=== PATIENT | female | born 1940 | race Caucasian/White ===

== ENCOUNTER 2017-02-18 08:25 | Day surgery (SDC) | payer OTHER ==
[~2017-02-18] VITALS: Ht 154.9 cm; Wt 100.2 kg
[~2017-02-18 08:25] MED LIST: ASPI81TA85 PO; BSS with VANC/TOB/EPI for EYE CASES IR ONE; CARV3.12 PO; COLE1TAB PO; CYCLOPENTOLATE 2% OPHTH SOLN 2ML BTL OS ONE; DULO1CAP3 PO; EZET10TA PO; FLUTISP; HYDR25TAB PO; INSULANT SC; JANU100T PO; LIDOCAINE 3.5 % 1ML OPHTH TOPICAL GEL OU ONE; LORA10TA2 PO; METF10004 PO; MIDAZOLAM INJ 2 MG/2 ML VIAL (J2250) As Ordered ONE; NEXI1CAP4 PO; NIAC500T5 PO; OFLOXACIN 0.3 % (OCUFLOX) OPTH SOL 5ML OS ONE; PHENYLEPHRINE 2.5% OPHTH SOL 2ML OS ONE; PLAV1TAB2 PO; SYNT125T PO; TROPICAMIDE 1% OPHTH SOLN 2ML OS ONE; TYLE500T78 PO; VITA500T PO; fentaNYL 100 MCG/2 ML INJECTION (J3010) As Ordered ONE
[2017-02-18] MEDS ORDERED: LR 1,000 ML IV ONE (08:45)
[2017-02-18] MEDS ORDERED: TRIAMCINOLONE PRES FR 40 MG/ML 1ML(TRIESENCE)(OR EYE ONLY)(J3300 PER 1MG) As Ordered ONE ×2 (09:34→09:43)
[2017-02-18] MEDS ORDERED: LIDOCAINE 1% SDV 5 ML VIAL As Ordered ONE ×2 (09:34→09:43)
[2017-02-18] MEDS ORDERED: POVIDONE-IODINE 5% OPHTH PREP SOL 30ML As Ordered ONE ×2 (09:34→09:43)
[2017-02-18] MEDS ORDERED: MOXIFLOXACIN IN BSS 0.25MG/0.25ML INTRACAMERAL INJ (OR EYE ONLY)(J2280) As Ordered ONE ×2 (09:34→09:43)
[2017-02-18] MEDS ORDERED: HEALON DUET (HEALON 10MG/ML 0.55ML & HEALON ENDOCOAT 30MG/ML 0.85ML) As Ordered ONE ×2 (09:35→09:43)
[2017-02-18 10:40] VITALS: BP 169/68
== END 2017-02-18 10:53 | disposition home or self-care (01) ==
LOC: M SDC 08:25
PROVIDERS: ATTEND Ophthalmology
DX: H26.9 Unspecified cataract (principal); I25.2 Old myocardial infarction; I12.9 Hypertensive chronic kidney disease with stage 1 through stage 4 chronic kidney disease, or unspecified chronic kidney disease; E78.2 Mixed hyperlipidemia; E10.9 Type 1 diabetes mellitus without complications; E03.8 Other specified hypothyroidism; K21.9 Gastro-esophageal reflux disease without esophagitis; M12.9 Arthropathy, unspecified; F41.9 Anxiety disorder, unspecified; F32.9 Major depressive disorder, single episode, unspecified; N18.3 Chronic kidney disease, stage 3 (moderate); D64.9 Anemia, unspecified; M25.562 Pain in left knee; E66.9 Obesity, unspecified; E55.9 Vitamin D deficiency, unspecified; E53.8 Deficiency of other specified B group vitamins; Z88.2 Allergy status to sulfonamides; Z79.899 Other long term (current) drug therapy; Z79.82 Long term (current) use of aspirin; Z79.84 Long term (current) use of oral hypoglycemic drugs
CPT/HCPCS: 66984; J2250; J2280; J3010; J3300; V2632

== ENCOUNTER 2017-04-06 06:31 | Day surgery (SDC) | payer OTHER ==
[~2017-04-06] VITALS: Ht 154.9 cm; Wt 99.8 kg
[~2017-04-06 06:31] MED LIST changes: -BSS with VANC/TOB/EPI for EYE CASES IR ONE; -CYCLOPENTOLATE 2% OPHTH SOLN 2ML BTL OS ONE; -LIDOCAINE 3.5 % 1ML OPHTH TOPICAL GEL OU ONE; -MIDAZOLAM INJ 2 MG/2 ML VIAL (J2250) As Ordered ONE; -OFLOXACIN 0.3 % (OCUFLOX) OPTH SOL 5ML OS ONE; -PHENYLEPHRINE 2.5% OPHTH SOL 2ML OS ONE; -TROPICAMIDE 1% OPHTH SOLN 2ML OS ONE; +VITA100072 PO; -fentaNYL 100 MCG/2 ML INJECTION (J3010) As Ordered ONE
[2017-04-06] MEDS ORDERED: SLF 3 ML SYR IV PRN (06:45)
[2017-04-06] MEDS ORDERED: CYCLOPENTOLATE 2% OPHTH SOLN 2ML BTL OD ONE (07:00)
[2017-04-06] MEDS ORDERED: BSS with VANC/TOB/EPI for EYE CASES IR ONE (07:00)
[2017-04-06] MEDS ORDERED: TROPICAMIDE 1% OPHTH SOLN 2ML OD ONE (07:00)
[2017-04-06] MEDS ORDERED: LIDOCAINE 3.5 % 1ML OPHTH TOPICAL GEL OU ONE (07:00)
[2017-04-06] MEDS ORDERED: OFLOXACIN 0.3 % (OCUFLOX) OPTH SOL 5ML OD ONE (07:00)
[2017-04-06] MEDS ORDERED: PHENYLEPHRINE 2.5% OPHTH SOL 2ML OD ONE (07:00)
[2017-04-06] MEDS ORDERED: LIDOCAINE 1% SDV 5 ML VIAL As Ordered ONE (08:30)
[2017-04-06] MEDS ORDERED: POVIDONE-IODINE 5% OPHTH PREP SOL 30ML As Ordered ONE (08:30)
[2017-04-06] MEDS ORDERED: TRIAMCINOLONE PRES FR 40 MG/ML 1ML(TRIESENCE)(OR EYE ONLY)(J3300 PER 1MG) As Ordered ONE (08:30)
[2017-04-06] MEDS ORDERED: MOXIFLOXACIN IN BSS 0.25MG/0.25ML INTRACAMERAL INJ (OR EYE ONLY)(J2280) As Ordered ONE (08:31)
[2017-04-06] MEDS ORDERED: HEALON DUET (HEALON 10MG/ML 0.55ML & HEALON ENDOCOAT 30MG/ML 0.85ML) As Ordered ONE ×2 (08:31→08:53)
[2017-04-06] MEDS ORDERED: MIDAZOLAM INJ 2 MG/2 ML VIAL (J2250) As Ordered ONE (08:49)
[2017-04-06] MEDS ORDERED: fentaNYL 100 MCG/2 ML INJECTION (J3010) As Ordered ONE ×2 (08:49→09:10)
[2017-04-06] MEDS ORDERED: ACETYLCHOLINE OPHTH SOLN 1% 2ML (MIOCHOL-E) As Ordered ONE (08:59)
[2017-04-06 09:55] VITALS: BP 168/76
--- NOTE | 2017-04-06 10:48 | RO ---
DATE OF PROCEDURE: 04/06/2017 PREPROCEDURE DIAGNOSIS: Cataract right eye. POSTPROCEDURE DIAGNOSIS: Cataract right eye. PROCEDURE: Phacoemulsification and intraocular lens implantation, power [id number], power 25 diopters. SURGEON: Dr. Katie Leblanc. [employer] CUTTING SUPERVISOR: None. ANESTHESIA: DESCRIPTION OF PROCEDURE: The patient was brought to the operating room and laid in supine position. The eye was prepped and draped in sterile type fashion for ophthalmic surgery and a lid speculum was placed. A sideport incision was made and then EndoCoat with injected into the anterior chamber. Temporal clean corneal incision was made with a 2.5 mm keratome and capsulorrhexis was done. This was followed by hydrodissection and phacoemulsification in a divide and conquer method. Excess cortical material cortical material was then aspirated using a aspiration cannula. Healon was then placed into the capsular bag and then intraocular lens inserted. Excess viscoelastic was being aspirated when the lens slipped and a tear was noted into the posterior capsule. At this point, we decided to do a lens exchange with the help of the lens curet. The originally placed lens, which was a HOYA was then cut and removed and the [id number] diopter was then placed in the ciliary sulcus. Excess viscoelastic was aspirated. The wound was hydrated. Subtenon injection of the cameral was given. Intracameral moxifloxacin was given. The lid speculum was removed and the case was discussed in detail with the patient in the recovery room.
[2017-04-06] MEDS ORDERED: SLF 3 ML SYR IV SCH (14:00)
== END 2017-04-06 09:56 | disposition home or self-care (01) ==
LOC: M SDC 06:31
PROVIDERS: ATTEND Ophthalmology
DX: H26.9 Unspecified cataract (principal); H59.211 Accidental puncture and laceration of right eye and adnexa during an ophthalmic procedure; I12.9 Hypertensive chronic kidney disease with stage 1 through stage 4 chronic kidney disease, or unspecified chronic kidney disease; I25.2 Old myocardial infarction; E10.9 Type 1 diabetes mellitus without complications; E78.00 Pure hypercholesterolemia, unspecified; K21.9 Gastro-esophageal reflux disease without esophagitis; D64.9 Anemia, unspecified; M19.90 Unspecified osteoarthritis, unspecified site; F41.9 Anxiety disorder, unspecified; F32.9 Major depressive disorder, single episode, unspecified; N18.3 Chronic kidney disease, stage 3 (moderate); Z88.2 Allergy status to sulfonamides; Z79.899 Other long term (current) drug therapy; Z79.82 Long term (current) use of aspirin; Z79.02 Long term (current) use of antithrombotics/antiplatelets
CPT/HCPCS: 66984; J2250; J2280; J3010; J3300; V2632

== ENCOUNTER → 2019-07-11 | Outpatient (CLI) | payer MEDICAID, MEDICARE ==
[~2019-07-11] MED LIST changes: -DULO1CAP3 PO; +DULO1CAP6 PO; -EZET10TA PO; +EZET10TA21 PO; +LORA-243 PO; -LORA10TA2 PO; +VITA100018 PO; -VITA100072 PO
--- NOTE | 2019-07-11 12:10 | REP ---
PA and lateral chest: There are no comparisons. The there are no focal infiltrates. The lung soto otherwise clear. Cardiac size is normal. The angela and mediastinum are unremarkable. There is thoracic scoliosis convex right at the thoracolumbar junction. Impression No acute cardiopulmonary findings. Electronically Signed by Juanjo Pedersen MD 07/11/2019 12:01 P
--- NOTE | 2019-07-11 13:30 | REP ---
Ventilation-perfusion lung scan: History: Shortness of breath. Elevated D-dimer. Technique: 1.0 mCi technetium 99m DTPA aerosol is utilized for the ventilation study and is followed by a 5.4 mCi intravenous dose of technetium-99m MAA for the perfusion study. A series of eight planar images are acquired for each portion of the exam. Comparison is made with today's chest x-ray. Scintigraphic findings: The ventilation study shows some central bronchial deposition of tracer bilaterally consistent with some degree of COPD. Perfusion study shows better distribution and more homogeneous distribution than the ventilation study. There is a matched defect in the right lower lobe laterally. No mismatched defect is seen. Impression: Low probability VQ scan for pulmonary embolus. Electronically Signed by Greg Morin MD 07/11/2019 05:42 P
== END ==
LOC: M RAD 11:14
PROVIDERS: ATTEND Family Medicine
DX: R06.02 Shortness of breath (principal)
CPT/HCPCS: 71046; 78582; A9540; A9567

== ENCOUNTER 2021-11-02 14:45 | Inpatient (IN) | payer MEDICARE ==
[~2021-11-02] VITALS: Ht 154.9 cm; Wt 70.6 kg
[~2021-11-02 14:45] MED LIST changes: -ASPI81TA85 PO; +ASPI81TA86 PO; +HYDR-3490 PO; -HYDR25TAB PO; +VITA-243 PO; -VITA500T PO
[2021-11-02 15:45] VITALS: BP 157/60
[2021-11-02] MEDS ORDERED: ENOXAPARIN 30MG/0.3ML SYRINGE (J1650 PER 10MG) SC SCH (17:30)
[2021-11-02] MEDS: INSULIN LISPRO (NovoLOG) PER UNIT SC SCH (17:30)
[2021-11-02] MEDS ORDERED: DEXTROSE 50% 50 ML SYRINGE IV PRN (17:45)
[2021-11-02] MEDS ORDERED: GLUCOSE 4GM CHEW TABLET PO PRN (17:45)
[2021-11-02] MEDS ORDERED: GLUCAGON INJ 1MG VIAL SC PRN (17:45)
[2021-11-02] MEDS ORDERED: CIPROFLOXACIN 250MG TAB PO SCH (18:00)
[2021-11-02] MEDS ORDERED: ASPI-161 PO (18:54)
[2021-11-02] MEDS ORDERED: PROT40IN4 IV (18:54)
[2021-11-02] MEDS ORDERED: [UNRECOGNIZED DRUG - CODE] IV (18:54)
[2021-11-02] MEDS ORDERED: ACET1TAB55 PO (18:54)
[2021-11-02] MEDS ORDERED: NOVOINJ12 SC (18:54)
[2021-11-02] MEDS ORDERED: IPRA0.00 NEB (18:54)
[2021-11-02] MEDS ORDERED: ONDA40IN IV (18:54)
[2021-11-02] MEDS ORDERED: COMMENTS (18:56)
[2021-11-02] MEDS ORDERED: HOME MED LIST COMPLETE! XX SCH (19:00)
[2021-11-02 19:08] LABS: ALBUMIN 3.2 GM/DL (3.2-5.2); BILIRUBIN,TOTAL 0.5 MG/DL (0.2-1.0); CALCIUM LEVEL 7.7 MG/DL (8.8-10.2); CREATININE FOR GFR 9.08 MG/DL (0.55-1.30); GLOMERULAR FILTRATION RATE 4.4 (>32); POTASSIUM SERUM 4.7 MEQ/L (3.5-5.1); TOTAL PROTEIN 5.4 GM/DL (6.4-8.2)
[2021-11-02 20:00] VITALS: BP 147/66
[2021-11-02 20:15] LABS: APPEARANCE, URINE CLEAR (CLEAR); BACTERIA, URINE AUTO NEGATIVE (NEGATIVE); BILIRUBIN, URINE AUTO NEGATIVE (NEGATIVE); BLOOD, URINE BLOOD 2+ (NEGATIVE); COLOR, URINE COLORLESS (YELLOW); GLUCOSE, URINE (UA) AUTO 3+ mg/dL (NEGATIVE); KETONE, URINE AUTO TRACE mg/dL (NEGATIVE); LEUKOCYTE ESTERASE, URINE AUTO NEGATIVE (NEGATIVE); NITRITE, URINE AUTO NEGATIVE (NEGATIVE); PROTEIN, URINE AUTO 1+ mg/dL (NEGATIVE); RBC, URINE AUTO 13 /HPF (0-3); SPECIFIC GRAVITY URINE AUTO 1.003 (1.002-1.035); SQUAMOUS EPITHELIAL CELL UR AU 0 /HPF (0-6); UROBILINOGEN, URINE AUTO 0.2 mg/dL (0.0-2.0); WBC, URINE AUTO 0 /HPF (0-3)
[2021-11-02 20:18] LABS: OSMOLALITY URINE 287 MOSM/KG (50-1400)
[2021-11-02] MEDS ORDERED: LEVEMIR (INSULIN DETEMIR) 1 UNITS/0.01ML SC SCH (21:00)
[2021-11-02] MEDS: ASCORBIC ACID 500 MG TAB PO SCH (21:29)
[2021-11-02] MEDS: NS 1,000 ML IV SCH (23:49)
[2021-11-03] VITALS: BP 147/66
[2021-11-03] MEDS ORDERED: UNRESOLVED CLARIFICATION ENTRY XX SCH (00:01)
[2021-11-03] MEDS ORDERED: PILL CUTTER 1 EACH XX PRN (00:55)
[2021-11-03] MEDS ORDERED: FAMOTIDINE 20 MG TAB PO ONE (01:00)
[2021-11-03 04:00] VITALS: BP 152/68
[2021-11-03 05:43] LABS: BASO % 0.4 % (0.0-1.0); EOS # 0.3 10^3/uL (0.0-0.5); HEMATOCRIT 29.7 % (36.0-47.0); HEMOGLOBIN 9.6 g/dl (12.0-15.5); LYMPH # 3.1 10^3/uL (1.5-5.0); LYMPH % 44.9 % (24.0-44.0); MEAN CORPUSCULAR HEMOGLOBIN 32.3 pg (27.0-33.0); MEAN CORPUSCULAR HGB CONC 32.3 g/dl (32.0-36.5); MONO # 0.4 10^3/uL (0.0-0.8); MONO % 5.2 % (2.0-8.0); NEUTROPHILS # 3.1 10^3/uL (1.5-8.5); NEUTROPHILS % 45.1 % (36.0-66.0); PLATELET COUNT, AUTOMATED 123 10^3/uL (150-450); RED BLOOD COUNT 2.97 10^6/uL (4.00-5.40); WHITE BLOOD COUNT 6.8 10^3/uL (4.0-10.0)
[2021-11-03 06:13] LABS: CALCIUM LEVEL 7.6 MG/DL (8.8-10.2); CREATININE FOR GFR 9.29 MG/DL (0.55-1.30); GLOMERULAR FILTRATION RATE 4.3 (>32); MAGNESIUM LEVEL 1.5 MG/DL (1.8-2.4); POTASSIUM SERUM 4.3 MEQ/L (3.5-5.1); URIC ACID 14.2 MG/DL (2.6-6.0)
[2021-11-03] MEDS: LEVOTHYROXINE 125MCG TABLET (0.125MG) PO SCH (06:40)
[2021-11-03] MEDS: MAG SULF 1GM/100ML (MAG RUN) 1 GM in IV 1 EA IV SCH ×2 (06:40→08:03)
[2021-11-03] MEDS: INSULIN LISPRO (NovoLOG) PER UNIT SC SCH ×3 (07:17→16:54)
[2021-11-03] MEDS: CYANOCOBALAMIN 500 MCG TAB PO SCH (08:33)
[2021-11-03] MEDS: CLOPIDOGREL 75 MG TAB PO SCH (08:33)
[2021-11-03] MEDS: ASPIRIN 81MG ENTERIC TABLET PO SCH (08:33)
[2021-11-03] MEDS: DULoxetine 30MG CAPSULE (CYMBALTA) PO SCH (08:33)
[2021-11-03] MEDS: HEPARIN SOD (PORCINE) 5000UNITS/ML 1ML VIAL/SYRINGE SQ SCH ×2 (08:33→21:11)
[2021-11-03] MEDS: LORATADINE 10 MG TAB PO SCH (08:34)
[2021-11-03] MEDS: ASCORBIC ACID 500 MG TAB PO SCH ×3 (08:34→21:11)
[2021-11-03] MEDS: ACETAMINOPHEN TAB 650MG DOSE (2X325MG) PO PRN (11:08)
[2021-11-03] MEDS: NS 1,000 ML IV SCH ×2 (11:23→18:52)
[2021-11-03] MEDS ORDERED: allopurinoL 100 MG TAB PO ONE (12:15)
[2021-11-03] MEDS: ONDANSETRON 4MG 2ML VIAL IV PRN (15:17)
[2021-11-03 15:26] VITALS: BP 190/96
[2021-11-03] MEDS: amLODIPine 5 MG TAB PO SCH (16:53)
[2021-11-03 20:00] VITALS: BP 188/89
[2021-11-04 00:32] VITALS: BP 161/74
[2021-11-04] MEDS: NS 1,000 ML IV SCH ×4 (01:35→22:05)
[2021-11-04 03:27] VITALS: BP 164/88
[2021-11-04 06:13] LABS: BASO % 0.4 % (0.0-1.0); EOS # 0.2 10^3/uL (0.0-0.5); EOS % 3.2 % (0.0-3.0); HEMATOCRIT 31.5 % (36.0-47.0); HEMOGLOBIN 10.6 g/dl (12.0-15.5); LYMPH # 2.8 10^3/uL (1.5-5.0); LYMPH % 39.7 % (24.0-44.0); MEAN CORPUSCULAR HEMOGLOBIN 33.8 pg (27.0-33.0); MEAN CORPUSCULAR HGB CONC 33.7 g/dl (32.0-36.5); MEAN CORPUSCULAR VOLUME 100.3 fl (80.0-96.0); MONO # 0.3 10^3/uL (0.0-0.8); MONO % 4.5 % (2.0-8.0); NEUTROPHILS # 3.7 10^3/uL (1.5-8.5); NEUTROPHILS % 51.9 % (36.0-66.0); PLATELET COUNT, AUTOMATED 129 10^3/uL (150-450); RED BLOOD COUNT 3.14 10^6/uL (4.00-5.40); WHITE BLOOD COUNT 7.2 10^3/uL (4.0-10.0)
[2021-11-04 06:26] LABS: MAGNESIUM LEVEL 2.1 MG/DL (1.8-2.4)
[2021-11-04] MEDS: ONDANSETRON 4MG 2ML VIAL IV PRN (06:31)
[2021-11-04] MEDS: ACETAMINOPHEN TAB 650MG DOSE (2X325MG) PO PRN (06:32)
[2021-11-04] MEDS: LEVOTHYROXINE 125MCG TABLET (0.125MG) PO SCH (06:32)
[2021-11-04 07:22] VITALS: BP 158/77
[2021-11-04] MEDS: INSULIN LISPRO (NovoLOG) PER UNIT SC SCH ×3 (07:30→17:30)
[2021-11-04 07:31] LABS: CALCIUM LEVEL 7.4 MG/DL (8.8-10.2); CREATININE FOR GFR 8.35 MG/DL (0.55-1.30); GLOMERULAR FILTRATION RATE 4.9 (>32); POTASSIUM SERUM 4.3 MEQ/L (3.5-5.1)
[2021-11-04] MEDS: CYANOCOBALAMIN 500 MCG TAB PO SCH (08:26)
[2021-11-04] MEDS: allopurinoL 100 MG TAB PO SCH (08:26)
[2021-11-04] MEDS: METOCLOPRAMIDE 5 MG TAB PO SCH ×4 (08:26→20:46)
[2021-11-04] MEDS: DULoxetine 30MG CAPSULE (CYMBALTA) PO SCH (08:26)
[2021-11-04] MEDS: amLODIPine 5 MG TAB PO SCH (08:26)
[2021-11-04] MEDS: ASPIRIN 81MG ENTERIC TABLET PO SCH (08:26)
[2021-11-04] MEDS: CLOPIDOGREL 75 MG TAB PO SCH (08:26)
[2021-11-04] MEDS: HEPARIN SOD (PORCINE) 5000UNITS/ML 1ML VIAL/SYRINGE SQ SCH ×2 (08:26→20:46)
[2021-11-04] MEDS: LORATADINE 10 MG TAB PO SCH (08:26)
[2021-11-04] MEDS: ASCORBIC ACID 500 MG TAB PO SCH ×3 (08:27→20:46)
[2021-11-04] MEDS: PANTOPRAZOLE 40MG VIAL IV SCH (08:27)
[2021-11-04 12:00] VITALS: BP 152/66
[2021-11-04 16:00] VITALS: BP 136/64
[2021-11-04 20:00] VITALS: BP 139/63
[2021-11-05] VITALS (8 sets, daily range): BP systolic 88–146; BP diastolic 50–71
[2021-11-05] MEDS: NS 1,000 ML IV SCH (05:08)
[2021-11-05] MEDS: LEVOTHYROXINE 125MCG TABLET (0.125MG) PO SCH (05:08)
[2021-11-05 05:09] LABS: BASO % 0.3 % (0.0-1.0); EOS # 0.1 10^3/uL (0.0-0.5); EOS % 0.6 % (0.0-3.0); HEMATOCRIT 32.3 % (36.0-47.0); HEMOGLOBIN 10.3 g/dl (12.0-15.5); LYMPH % 25.8 % (24.0-44.0); MEAN CORPUSCULAR HEMOGLOBIN 32.8 pg (27.0-33.0); MEAN CORPUSCULAR HGB CONC 31.9 g/dl (32.0-36.5); MEAN CORPUSCULAR VOLUME 102.9 fl (80.0-96.0); MONO # 0.3 10^3/uL (0.0-0.8); MONO % 2.7 % (2.0-8.0); NEUTROPHILS # 8.1 10^3/uL (1.5-8.5); NEUTROPHILS % 70.1 % (36.0-66.0); PLATELET COUNT, AUTOMATED 120 10^3/uL (150-450); RED BLOOD COUNT 3.14 10^6/uL (4.00-5.40); WHITE BLOOD COUNT 11.5 10^3/uL (4.0-10.0)
[2021-11-05 05:25] LABS: MAGNESIUM LEVEL 1.8 MG/DL (1.8-2.4)
[2021-11-05 07:10] LABS: CALCIUM LEVEL 7.6 MG/DL (8.8-10.2); CREATININE FOR GFR 7.03 MG/DL (0.55-1.30); POTASSIUM SERUM 4.2 MEQ/L (3.5-5.1)
[2021-11-05] MEDS: CYANOCOBALAMIN 500 MCG TAB PO SCH (08:23)
[2021-11-05] MEDS: DULoxetine 30MG CAPSULE (CYMBALTA) PO SCH (08:23)
[2021-11-05] MEDS: PANTOPRAZOLE 40MG VIAL IV SCH (08:23)
[2021-11-05] MEDS: allopurinoL 100 MG TAB PO SCH (08:23)
[2021-11-05] MEDS: ASCORBIC ACID 500 MG TAB PO SCH ×3 (08:23→20:27)
[2021-11-05] MEDS: HEPARIN SOD (PORCINE) 5000UNITS/ML 1ML VIAL/SYRINGE SQ SCH ×2 (08:23→20:27)
[2021-11-05] MEDS: amLODIPine 5 MG TAB PO SCH (08:23)
[2021-11-05] MEDS: ASPIRIN 81MG ENTERIC TABLET PO SCH (08:23)
[2021-11-05] MEDS: LORATADINE 10 MG TAB PO SCH (08:24)
[2021-11-05] MEDS: CLOPIDOGREL 75 MG TAB PO SCH (08:24)
[2021-11-05] MEDS: METOCLOPRAMIDE 5 MG TAB PO SCH ×4 (08:24→20:27)
[2021-11-05] MEDS: INSULIN LISPRO (NovoLOG) PER UNIT SC SCH ×3 (08:24→17:00)
[2021-11-05] MEDS: SODIUM BICARBONATE 150 MEQ in STERILE WATER LITER BAG 1,000 ML IV SCH ×2 (10:21→18:50)
[2021-11-05 19:40] LABS: CALCIUM LEVEL 7.8 MG/DL (8.8-10.2); CREATININE FOR GFR 6.31 MG/DL (0.55-1.30); GLOMERULAR FILTRATION RATE 6.7 (>32); POTASSIUM SERUM 3.3 MEQ/L (3.5-5.1)
[2021-11-06] MEDS: SODIUM BICARBONATE 150 MEQ in STERILE WATER LITER BAG 1,000 ML IV SCH ×2 (02:53→11:56)
[2021-11-06 03:45] VITALS: BP 145/62
[2021-11-06 04:14] LABS: BASO % 0.2 % (0.0-1.0); EOS # 0.3 10^3/uL (0.0-0.5); EOS % 2.5 % (0.0-3.0); HEMATOCRIT 29.6 % (36.0-47.0); HEMOGLOBIN 9.8 g/dl (12.0-15.5); LYMPH # 3.2 10^3/uL (1.5-5.0); MEAN CORPUSCULAR HEMOGLOBIN 32.7 pg (27.0-33.0); MEAN CORPUSCULAR HGB CONC 33.1 g/dl (32.0-36.5); MEAN CORPUSCULAR VOLUME 98.7 fl (80.0-96.0); MONO # 0.5 10^3/uL (0.0-0.8); MONO % 4.2 % (2.0-8.0); NEUTROPHILS # 7.4 10^3/uL (1.5-8.5); NEUTROPHILS % 64.6 % (36.0-66.0); PLATELET COUNT, AUTOMATED 114 10^3/uL (150-450); WHITE BLOOD COUNT 11.5 10^3/uL (4.0-10.0)
[2021-11-06] MEDS: LEVOTHYROXINE 125MCG TABLET (0.125MG) PO SCH (06:31)
[2021-11-06 07:27] VITALS: BP 147/62
[2021-11-06] MEDS: INSULIN LISPRO (NovoLOG) PER UNIT SC SCH ×3 (08:45→17:43)
[2021-11-06] MEDS: ASPIRIN 81MG ENTERIC TABLET PO SCH (08:53)
[2021-11-06] MEDS: PANTOPRAZOLE 40MG VIAL IV SCH (08:53)
[2021-11-06] MEDS: HEPARIN SOD (PORCINE) 5000UNITS/ML 1ML VIAL/SYRINGE SQ SCH ×2 (08:53→19:53)
[2021-11-06] MEDS: METOCLOPRAMIDE 5 MG TAB PO SCH ×4 (08:54→19:50)
[2021-11-06] MEDS: allopurinoL 100 MG TAB PO SCH (08:54)
[2021-11-06] MEDS: LORATADINE 10 MG TAB PO SCH (08:54)
[2021-11-06] MEDS: CYANOCOBALAMIN 500 MCG TAB PO SCH ×2 (08:54→09:00)
[2021-11-06] MEDS: amLODIPine 5 MG TAB PO SCH (08:54)
[2021-11-06] MEDS: DULoxetine 30MG CAPSULE (CYMBALTA) PO SCH ×2 (08:54→09:00)
[2021-11-06] MEDS: CLOPIDOGREL 75 MG TAB PO SCH (08:54)
[2021-11-06] MEDS: ASCORBIC ACID 500 MG TAB PO SCH ×4 (08:54→19:55)
[2021-11-06] MEDS: POTASSIUM CHLORIDE 10MEQ SR TABLET PO ONE ×2 (08:54→10:24)
[2021-11-06 09:30] LABS: CALCIUM LEVEL 7.7 MG/DL (8.8-10.2); CREATININE FOR GFR 5.23 MG/DL (0.55-1.30); GLOMERULAR FILTRATION RATE 8.4 (>32); POTASSIUM SERUM 3.2 MEQ/L (3.5-5.1)
[2021-11-06] MEDS: POTASSIUM CHLORIDE 10% LIQ 20 MEQ/15 ML UDC PO SCH ×2 (11:58→19:50)
[2021-11-06 12:15] VITALS: BP 161/65
[2021-11-06 15:42] VITALS: BP 142/65
[2021-11-06 20:23] VITALS: BP 138/64
[2021-11-06] MEDS ORDERED: POTASSIUM CHLORIDE 10MEQ SR TABLET PO SCH (21:00)
[2021-11-06] MEDS: NYSTATIN 100,000 UNITS/GM TOPICAL PWD 15 GM TOP SCH (21:34)
[2021-11-06 23:38] VITALS: BP 159/70
[2021-11-07] VITALS (7 sets, daily range): BP systolic 133–158; BP diastolic 61–69
[2021-11-07] MEDS: SODIUM BICARBONATE 150 MEQ in STERILE WATER LITER BAG 1,000 ML IV SCH (02:38)
[2021-11-07] MEDS: ACETAMINOPHEN 325 MG/10.15 ML UDC GT PRN ×2 (02:58→17:07)
[2021-11-07 03:50] LABS: BASO % 0.3 % (0.0-1.0); EOS # 0.3 10^3/uL (0.0-0.5); EOS % 2.8 % (0.0-3.0); LYMPH # 3.4 10^3/uL (1.5-5.0); LYMPH % 32.4 % (24.0-44.0); MEAN CORPUSCULAR HGB CONC 33.3 g/dl (32.0-36.5); MONO # 0.6 10^3/uL (0.0-0.8); MONO % 6.1 % (2.0-8.0); NEUTROPHILS % 57.6 % (36.0-66.0); PLATELET COUNT, AUTOMATED 110 10^3/uL (150-450); RED BLOOD COUNT 3.03 10^6/uL (4.00-5.40); WHITE BLOOD COUNT 10.4 10^3/uL (4.0-10.0)
[2021-11-07 04:14] LABS: MAGNESIUM LEVEL 1.2 MG/DL (1.8-2.4); URIC ACID 4.7 MG/DL (2.6-6.0)
[2021-11-07] MEDS: MAG SULF 1GM/100ML (MAG RUN) 1 GM in IV 1 EA IV SCH ×2 (04:49→05:47)
[2021-11-07] MEDS: LEVOTHYROXINE 125MCG TABLET (0.125MG) PO SCH (04:50)
[2021-11-07 05:16] LABS: CALCIUM LEVEL 7.8 MG/DL (8.8-10.2); CREATININE FOR GFR 4.27 MG/DL (0.55-1.30); GLOMERULAR FILTRATION RATE 10.6 (>32); POTASSIUM SERUM 3.4 MEQ/L (3.5-5.1)
[2021-11-07] MEDS: INSULIN LISPRO (NovoLOG) PER UNIT SC SCH ×3 (07:30→16:49)
[2021-11-07] MEDS ORDERED: CHLORASEPTIC SPRAY MT PRN (08:20)
[2021-11-07] MEDS ORDERED: CEPACOL LOZENGE PO PRN (08:20)
[2021-11-07] MEDS: HEPARIN SOD (PORCINE) 5000UNITS/ML 1ML VIAL/SYRINGE SQ SCH ×2 (08:50→23:11)
[2021-11-07] MEDS: PANTOPRAZOLE 40MG VIAL IV SCH (08:51)
[2021-11-07] MEDS: ASPIRIN 81MG ENTERIC TABLET PO SCH (08:51)
[2021-11-07] MEDS: DULoxetine 30MG CAPSULE (CYMBALTA) PO SCH (08:51)
[2021-11-07] MEDS: allopurinoL 100 MG TAB PO SCH (08:51)
[2021-11-07] MEDS: CLOPIDOGREL 75 MG TAB PO SCH (08:51)
[2021-11-07] MEDS: LORATADINE 10 MG TAB PO SCH (08:51)
[2021-11-07] MEDS: amLODIPine 5 MG TAB PO SCH (08:51)
[2021-11-07] MEDS: POTASSIUM CHLORIDE 10% LIQ 20 MEQ/15 ML UDC PO SCH ×2 (08:51→23:11)
[2021-11-07] MEDS: ASCORBIC ACID 500 MG TAB PO SCH ×3 (08:52→23:11)
[2021-11-07] MEDS: NYSTATIN 100,000 UNITS/GM TOPICAL PWD 15 GM TOP SCH ×2 (08:52→23:10)
[2021-11-07] MEDS: CYANOCOBALAMIN 500 MCG TAB PO SCH (08:52)
[2021-11-07] MEDS: METOCLOPRAMIDE 5 MG TAB PO SCH ×4 (08:53→23:11)
[2021-11-08 03:40] VITALS: BP 135/65
[2021-11-08 05:55] LABS: BASO % 0.2 % (0.0-1.0); EOS # 0.4 10^3/uL (0.0-0.5); EOS % 4.3 % (0.0-3.0); HEMATOCRIT 31.9 % (36.0-47.0); HEMOGLOBIN 10.8 g/dl (12.0-15.5); LYMPH # 3.4 10^3/uL (1.5-5.0); LYMPH % 38.8 % (24.0-44.0); MEAN CORPUSCULAR HEMOGLOBIN 33.8 pg (27.0-33.0); MEAN CORPUSCULAR HGB CONC 33.9 g/dl (32.0-36.5); MEAN CORPUSCULAR VOLUME 99.7 fl (80.0-96.0); MONO # 0.8 10^3/uL (0.0-0.8); MONO % 8.8 % (2.0-8.0); NEUTROPHILS # 4.1 10^3/uL (1.5-8.5); NEUTROPHILS % 46.5 % (36.0-66.0); PLATELET COUNT, AUTOMATED 103 10^3/uL (150-450); WHITE BLOOD COUNT 8.8 10^3/uL (4.0-10.0)
[2021-11-08 06:22] LABS: MAGNESIUM LEVEL 1.7 MG/DL (1.8-2.4)
[2021-11-08] MEDS: LEVOTHYROXINE 125MCG TABLET (0.125MG) PO SCH (06:39)
[2021-11-08 07:20] VITALS: BP 137/65
[2021-11-08 08:23] LABS: CALCIUM LEVEL 9.4 MG/DL (8.8-10.2); CREATININE FOR GFR 3.47 MG/DL (0.55-1.30); GLOMERULAR FILTRATION RATE 13.4 (>32); POTASSIUM SERUM 3.7 MEQ/L (3.5-5.1)
[2021-11-08] MEDS: INSULIN LISPRO (NovoLOG) PER UNIT SC SCH ×3 (08:36→17:30)
[2021-11-08] MEDS: POTASSIUM CHLORIDE 10% LIQ 20 MEQ/15 ML UDC PO SCH ×2 (08:36→21:30)
[2021-11-08] MEDS: MAG SULF 1GM/100ML (MAG RUN) 1 GM in IV 1 EA IV SCH ×2 (08:37→10:16)
[2021-11-08] MEDS: ASPIRIN 81MG ENTERIC TABLET PO SCH (08:38)
[2021-11-08] MEDS: HEPARIN SOD (PORCINE) 5000UNITS/ML 1ML VIAL/SYRINGE SQ SCH ×2 (08:38→21:27)
[2021-11-08] MEDS: amLODIPine 5 MG TAB PO SCH (08:38)
[2021-11-08] MEDS: NYSTATIN 100,000 UNITS/GM TOPICAL PWD 15 GM TOP SCH ×2 (08:39→21:27)
[2021-11-08] MEDS: allopurinoL 100 MG TAB PO SCH (08:39)
[2021-11-08] MEDS: LORATADINE 10 MG TAB PO SCH (08:39)
[2021-11-08] MEDS: CLOPIDOGREL 75 MG TAB PO SCH (08:39)
[2021-11-08] MEDS: METOCLOPRAMIDE 5 MG TAB PO SCH ×4 (08:39→21:26)
[2021-11-08] MEDS: CYANOCOBALAMIN 500 MCG TAB PO SCH (08:41)
[2021-11-08] MEDS: DULoxetine 30MG CAPSULE (CYMBALTA) PO SCH (08:41)
[2021-11-08] MEDS: ASCORBIC ACID 500 MG TAB PO SCH ×3 (08:42→21:26)
[2021-11-08 11:22] VITALS: BP_SYST 126; BP_SYST 134; BP_SYST 139; BP_DIAS 59; BP_DIAS 62; BP_DIAS 64
[2021-11-08 12:00] VITALS: BP 113/54
[2021-11-08 18:00] VITALS: BP 160/70
[2021-11-08 20:00] VITALS: BP 170/72
[2021-11-08] MEDS: ACETAMINOPHEN 325 MG/10.15 ML UDC GT PRN (21:27)
[2021-11-09] VITALS: BP 175/76
[2021-11-09 04:00] VITALS: BP 160/67
[2021-11-09] MEDS: LEVOTHYROXINE 125MCG TABLET (0.125MG) PO SCH (05:46)
[2021-11-09] MEDS: METOCLOPRAMIDE 5 MG TAB PO SCH ×4 (07:31→22:11)
[2021-11-09] MEDS: INSULIN LISPRO (NovoLOG) PER UNIT SC SCH ×3 (07:31→17:48)
[2021-11-09 08:00] VITALS: BP 155/65
[2021-11-09 08:02] LABS: BASO # 0.1 10^3/uL (0.0-0.2); BASO % 0.6 % (0.0-1.0); EOS # 0.5 10^3/uL (0.0-0.5); EOS % 5.7 % (0.0-3.0); HEMATOCRIT 31.9 % (36.0-47.0); HEMOGLOBIN 10.5 g/dl (12.0-15.5); LYMPH # 3.1 10^3/uL (1.5-5.0); LYMPH % 37.8 % (24.0-44.0); MEAN CORPUSCULAR HEMOGLOBIN 33.3 pg (27.0-33.0); MEAN CORPUSCULAR HGB CONC 32.9 g/dl (32.0-36.5); MEAN CORPUSCULAR VOLUME 101.3 fl (80.0-96.0); MONO # 1.1 10^3/uL (0.0-0.8); MONO % 13.6 % (2.0-8.0); NEUTROPHILS # 3.3 10^3/uL (1.5-8.5); NEUTROPHILS % 39.8 % (36.0-66.0); PLATELET COUNT, AUTOMATED 105 10^3/uL (150-450); RED BLOOD COUNT 3.15 10^6/uL (4.00-5.40); WHITE BLOOD COUNT 8.3 10^3/uL (4.0-10.0)
[2021-11-09 08:24] LABS: MAGNESIUM LEVEL 2.2 MG/DL (1.8-2.4)
[2021-11-09] MEDS: ASCORBIC ACID 500 MG TAB PO SCH ×3 (09:00→22:11)
[2021-11-09] MEDS: LORATADINE 10 MG TAB PO SCH (09:02)
[2021-11-09] MEDS: DULoxetine 30MG CAPSULE (CYMBALTA) PO SCH (09:02)
[2021-11-09] MEDS: ASPIRIN 81MG ENTERIC TABLET PO SCH (09:02)
[2021-11-09] MEDS: amLODIPine 5 MG TAB PO SCH (09:02)
[2021-11-09] MEDS: NYSTATIN 100,000 UNITS/GM TOPICAL PWD 15 GM TOP SCH ×2 (09:03→22:11)
[2021-11-09] MEDS: allopurinoL 100 MG TAB PO SCH (09:03)
[2021-11-09] MEDS: POTASSIUM CHLORIDE 10% LIQ 20 MEQ/15 ML UDC PO SCH (09:03)
[2021-11-09] MEDS: CYANOCOBALAMIN 500 MCG TAB PO SCH (09:03)
[2021-11-09] MEDS: HEPARIN SOD (PORCINE) 5000UNITS/ML 1ML VIAL/SYRINGE SQ SCH ×2 (09:03→22:32)
[2021-11-09] MEDS: CLOPIDOGREL 75 MG TAB PO SCH (09:03)
[2021-11-09 09:29] LABS: CALCIUM LEVEL 10.1 MG/DL (8.8-10.2); CREATININE FOR GFR 3.11 MG/DL (0.55-1.30); GLOMERULAR FILTRATION RATE 15.3 (>32); POTASSIUM SERUM 4.1 MEQ/L (3.5-5.1)
[2021-11-09 12:07] VITALS: BP 113/59
[2021-11-09 15:49] VITALS: BP 170/72
[2021-11-09 20:00] VITALS: BP 126/58
[2021-11-09] MEDS ORDERED: MOM 30ML SUSPENSION UDC PO PRN (22:15)
[2021-11-10 04:00] VITALS: BP 131/59
[2021-11-10] MEDS: LEVOTHYROXINE 125MCG TABLET (0.125MG) PO SCH (06:32)
[2021-11-10 07:49] VITALS: BP 130/68
[2021-11-10] MEDS: METOCLOPRAMIDE 5 MG TAB PO SCH ×4 (07:53→20:20)
[2021-11-10] MEDS: INSULIN LISPRO (NovoLOG) PER UNIT SC SCH ×3 (07:54→17:54)
[2021-11-10 08:12] LABS: BASO % 0.3 % (0.0-1.0); EOS # 0.4 10^3/uL (0.0-0.5); EOS % 5.3 % (0.0-3.0); HEMATOCRIT 31.3 % (36.0-47.0); HEMOGLOBIN 10.1 g/dl (12.0-15.5); LYMPH # 3.5 10^3/uL (1.5-5.0); LYMPH % 49.8 % (24.0-44.0); MEAN CORPUSCULAR HEMOGLOBIN 32.6 pg (27.0-33.0); MEAN CORPUSCULAR HGB CONC 32.3 g/dl (32.0-36.5); MONO % 14.9 % (2.0-8.0); NEUTROPHILS # 1.8 10^3/uL (1.5-8.5); NEUTROPHILS % 26.1 % (36.0-66.0); PLATELET COUNT, AUTOMATED 105 10^3/uL (150-450)
[2021-11-10] MEDS: allopurinoL 100 MG TAB PO SCH (08:40)
[2021-11-10] MEDS: LORATADINE 10 MG TAB PO SCH (08:40)
[2021-11-10] MEDS: DULoxetine 30MG CAPSULE (CYMBALTA) PO SCH (08:40)
[2021-11-10] MEDS: CLOPIDOGREL 75 MG TAB PO SCH (08:40)
[2021-11-10 08:41] LABS: ALBUMIN 2.7 GM/DL (3.2-5.2); BILIRUBIN,TOTAL 0.3 MG/DL (0.2-1.0); CALCIUM LEVEL 10.1 MG/DL (8.8-10.2); CREATININE FOR GFR 2.73 MG/DL (0.55-1.30); GLOMERULAR FILTRATION RATE 17.7 (>32); MAGNESIUM LEVEL 1.8 MG/DL (1.8-2.4); POTASSIUM SERUM 4.4 MEQ/L (3.5-5.1); TOTAL PROTEIN 5.7 GM/DL (6.4-8.2)
[2021-11-10] MEDS: ASCORBIC ACID 500 MG TAB PO SCH ×3 (08:41→20:21)
[2021-11-10] MEDS: ASPIRIN 81MG ENTERIC TABLET PO SCH (08:41)
[2021-11-10] MEDS: CYANOCOBALAMIN 500 MCG TAB PO SCH (08:41)
[2021-11-10] MEDS: amLODIPine 5 MG TAB PO SCH (08:41)
[2021-11-10] MEDS: HEPARIN SOD (PORCINE) 5000UNITS/ML 1ML VIAL/SYRINGE SQ SCH ×2 (08:42→20:20)
[2021-11-10] MEDS: NYSTATIN 100,000 UNITS/GM TOPICAL PWD 15 GM TOP SCH ×2 (08:42→20:21)
[2021-11-10 11:37] VITALS: BP 132/62
[2021-11-10 15:48] VITALS: BP 150/66
[2021-11-11] MEDS: LEVOTHYROXINE 125MCG TABLET (0.125MG) PO SCH (05:46)
[2021-11-11 06:03] LABS: HEMATOCRIT 30.6 % (36.0-47.0); HEMOGLOBIN 9.8 g/dl (12.0-15.5); MEAN CORPUSCULAR HEMOGLOBIN 32.6 pg (27.0-33.0); MEAN CORPUSCULAR VOLUME 101.7 fl (80.0-96.0); PLATELET COUNT, AUTOMATED 102 10^3/uL (150-450); RED BLOOD COUNT 3.01 10^6/uL (4.00-5.40); WHITE BLOOD COUNT 6.7 10^3/uL (4.0-10.0)
[2021-11-11 06:20] LABS: CALCIUM LEVEL 9.9 MG/DL (8.8-10.2); CREATININE FOR GFR 2.21 MG/DL (0.55-1.30); GLOMERULAR FILTRATION RATE 22.6 (>32); MAGNESIUM LEVEL 1.8 MG/DL (1.8-2.4); POTASSIUM SERUM 4.4 MEQ/L (3.5-5.1)
[2021-11-11] MEDS: METOCLOPRAMIDE 5 MG TAB PO SCH ×2 (07:53→11:42)
[2021-11-11] MEDS: INSULIN LISPRO (NovoLOG) PER UNIT SC SCH ×2 (07:54→11:43)
[2021-11-11 08:39] VITALS: BP 138/63
[2021-11-11] MEDS: CLOPIDOGREL 75 MG TAB PO SCH (08:39)
[2021-11-11] MEDS: LORATADINE 10 MG TAB PO SCH (08:39)
[2021-11-11] MEDS: amLODIPine 5 MG TAB PO SCH (08:39)
[2021-11-11] MEDS: HEPARIN SOD (PORCINE) 5000UNITS/ML 1ML VIAL/SYRINGE SQ SCH (08:39)
[2021-11-11] MEDS: DULoxetine 30MG CAPSULE (CYMBALTA) PO SCH (08:39)
[2021-11-11] MEDS: allopurinoL 100 MG TAB PO SCH (08:39)
[2021-11-11] MEDS: CYANOCOBALAMIN 500 MCG TAB PO SCH (08:39)
[2021-11-11] MEDS: NYSTATIN 100,000 UNITS/GM TOPICAL PWD 15 GM TOP SCH (08:39)
[2021-11-11] MEDS: ASPIRIN 81MG ENTERIC TABLET PO SCH (08:39)
[2021-11-11] MEDS: ASCORBIC ACID 500 MG TAB PO SCH (08:40)
[2021-11-11 11:46] VITALS: BP 153/63
[2021-11-11] MEDS ORDERED: INSULANT SC (12:45)
[2021-11-11] MEDS ORDERED: ASCO50TA PO (12:45)
[2021-11-11] MEDS ORDERED: AMLO1TAB24 PO (12:45)
== END 2021-11-11 15:06 | disposition home health service (06) | DRG 682 ==
LOC: M PCU 16:40
PROVIDERS: ADMIT Internal Medicine; ATTEND Family Medicine
DX: N17.9 Acute kidney failure, unspecified (principal); J15.1 Pneumonia due to Pseudomonas; E87.1 Hypo-osmolality and hyponatremia; I50.32 Chronic diastolic (congestive) heart failure; J44.0 Chronic obstructive pulmonary disease with (acute) lower respiratory infection; E87.2 Acidosis; I25.10 Atherosclerotic heart disease of native coronary artery without angina pectoris; E11.22 Type 2 diabetes mellitus with diabetic chronic kidney disease; D64.9 Anemia, unspecified; I95.1 Orthostatic hypotension; E83.42 Hypomagnesemia; N18.9 Chronic kidney disease, unspecified; Z79.82 Long term (current) use of aspirin; Z79.899 Other long term (current) drug therapy; Z88.2 Allergy status to sulfonamides; Z85.828 Personal history of other malignant neoplasm of skin; I25.2 Old myocardial infarction